=== PATIENT | female | born 1955 | race Caucasian/White ===

== ENCOUNTER 2018-04-19 18:14 | Inpatient (IN) ==
[2018-04-19] MEDS ORDERED: 0.9 % SODIUM CHLORIDE 1,000 ML IV ONE (18:55)
--- NOTE | 2018-04-19 19:18 | Emergency Department Note ---
Recheck HPI - General Chief Complaint: Recheck/Abnormal Lab/Rx Stated Complaint: low sodium Time Seen by Provider: 04/19/18 18:40 Source: patient Mode of arrival: ambulatory Limitations: no limitations - History of Present Illness HPI Narrative: 62-year-old female comes in for nausea and vomiting over the last week with profound hyponatremia found in her doctor's office. 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 Argueta up in [place] for surgical oncology as well as Dr. Fabrice reid here for oncology. She is on Zofran and Reglan and Compazine at home but has needed a scopolamine patch because of the severe nausea. She did pass out 3 nights ago and was found to be orthostatic at home. Today she notes new onset gross hematuria went to [facility] and saw Nevaeh Oscar nurse practitioner there who gave her a liter of fluid and check laboratory from her port. She is found to have sodium of 117 and so sent to the ER. She has a colostomy in place secondary to bowel obstructions from the cancer-she is not having trouble with the colostomy bag. Has not been taking her home medicines secondary to the nausea - Related Data Allergies Allergy/AdvReac Type Severity Reaction Status Date / Time chlorhexidine Allergy Verified 04/19/18 18:16 Oxycodone AdvReac Verified 04/19/18 18:16 Review of Systems All systems ED: reviewed and negative except as stated. Past Medical History - Past Medical History Attestation: Yes: The following information was validated with the patient. Medical history: Reports: cancer (Primary peritoneal), hypertension, hypothyroidism, other (Insomnia) Surgical history ED: Reports: appendectomy, , cataract, cholecystectomy , colostomy, hysterectomy, tubal ligation, other (Port ,right ear) - Social History smoking status: Never smoker Physical Exam No acute distress resting comfortably able to answer my questions appropriate. 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 Conjunctive are clear sclerae nonicteric. No nasal discharge or congestion. Oropharynx pink moist. Neck is supple without lymphadenopathy thyromegaly or carotid. Heart is regular rate and rhythm no murmur appreciated. Lungs are clear to auscultation bilaterally without wheezes rales rhonchi or respiratory distress. Abdomen soft nontender nondistended. Midline scar noted. Colostomy is noted on the right-hand side lower quadrant. It does appear to be in good position without leakage however malodorous. No pedal edema. +2 radial pulse. Alert oriented. Limitations: no limitations Course Vital Signs Temperature 97.2 F 04/19/18 18:17 Pulse Rate 112 H 04/19/18 18:17 Respiratory Rate 18 04/19/18 18:17 Blood Pressure 141/84 04/19/18 18:17 Pulse Oximetry (%) 96 04/19/18 18:17 Temperature 97.2 F 04/19/18 18:17 Pulse Rate 112 H 04/19/18 18:17 Respiratory Rate 18 04/19/18 18:17 Blood Pressure 141/84 04/19/18 18:17 Pulse Oximetry (%) 96 04/19/18 18:17 Recheck/Abnormal Lab/Rx - Lab Data Lab results reviewed: Yes I reviewed the patient's lab results. Result diagrams: 04/19/18 19:15 04/19/18 19:15 Lab Results 04/19/18 04/19/18 Range/Units 19:15 19:15 WBC 8.9 (4.5-11.0) K/mcL RBC 3.72 L (4.00-5.20) M/mcL Hgb 11.3 L (12.0-15.0) g/dL Hct 32.5 L (36.0-48.0) % POC Hct 32.0 L (36.0-48.0) % MCV 87.3 (80.0-100.0) fL MCH 30.4 (26.0-34.0) pg MCHC 34.8 (31.0-36.0) g/dL RDW 17.6 H (11.5-14.5) % Plt Count 461 H (140-440) K/mcL MPV 7.1 L (7.4-10.4) fL Gran % 51.5 (38.0-78.0) % Lymph % (Auto) 34.6 (15.5-49.0) % [place] % (Auto) 13.4 H (1.0-12.0) % Eos % (Auto) 0.3 (0.0-7.0) % Baso % (Auto) 0.2 (0.0-2.0) % Gran # 4.6 (1.8-8.0) K/mcL Lymph # (Auto) 3.1 (1.5-4.8) K/mcL [place] # (Auto) 1.2 H (0.1-0.9) K/mcL Eos # (Auto) 0 (0.0-0.7) K/mcL Baso # (Auto) 0 (0.0-0.3) K/mcL POC Sodium 126 L (133-145) mmol/L Sodium 124 L (133-145) mmol/L POC Potassium 3.3 (3.3-5.1) mmol/L Potassium 3.2 L (3.3-5.1) mmol/L POC Chloride 88 L (96-108) mmol/L Chloride 85 L (96-108) mmol/L Carbon Dioxide 23 (22-30) mmol/L POC Total CO2 22 (22-30) mmol/L Anion Gap 16.0 (8-16) POC BUN 16 (8-23) mg/dl BUN 15 (8-23) mg/dl Creatinine 0.7 (0.6-1.1) mg/dl POC Creatinine 0.6 (0.6-1.1) mg/dl GFR Calculation 94 Glucose 97 (70-105) mg/dL POC Glucose 100 (70-105) mg/dL Calcium 9.3 (8.6-10.4) mg/dl POC WB Ioniz Calcium 1.16 (1.16-1.32) mmol/L Magnesium 1.7 (1.6-2.5) mg/dL Total Bilirubin 0.4 (0.0-1.0) mg/dL AST 9 (0-37) U/l ALT 17 (0-40) U/l Alkaline Phosphatase 90 (39-117) U/L Total Protein 7.1 (5.9-8.4) gm/dL Albumin 3.9 (3.2-5.2) gm/dL Globulin 3.2 (2.2-3.7) gm/dL Albumin/Globulin Ratio 1.2 (1.0-2.3) Lipase 39 (7-60) U/L Disposition Pt seen by [employer]/PA only: No Clinical Impression: Hyponatremia, Hypokalemia, Chemotherapy induced nausea and vomiting Intractable nausea and vomiting Qualifiers: Vomiting type: unspecified Qualified Code(s): R11.2 - Nausea with vomiting, unspecified Summary: After exam and interview, workup ordered with laboratory. Fluids ordered at modest rate of 125 mL/h Laboratory shows increased sodium 124 now-this is rising all to fast so we will hydrate gently. Mild hypokalemia also noted Discussed case with Dr. Wells, our hospitalist, who agreed to accept the patient for further monitored electrolyte correction as well as treatment of her nausea and vomiting Urinalysis is pending Disposition: Xfer As Inpt ([facility]) Condition: Fair Referrals: Sarina Oscar ARNP [Primary Care Provider] -
[2018-04-19] MEDS ORDERED: ONDANSETRON 4 MG/2 ML VIAL IV ONE (19:49)
[2018-04-19 20:09] LABS: Basophils # (Auto) 0 K/mcL (0.0-0.3); Basophils % (Auto) 0.2 % (0.0-2.0); Eosinophils # (Auto) 0 K/mcL (0.0-0.7); Eosinophils % (Auto) 0.3 % (0.0-7.0); Granulocytes % (Auto) 51.5 % (38.0-78.0); Lymphocytes # (Auto) 3.1 K/mcL (1.5-4.8); Lymphocytes % (Auto) 34.6 % (15.5-49.0); Mean Cell Volume 87.3 fL (80.0-100.0); Mean Corpuscular HGB Conc 34.8 g/dL (31.0-36.0); Mean Corpuscular Hemoglobin 30.4 pg (26.0-34.0); Monocytes # (Auto) 1.2 K/mcL (0.1-0.9); Monocytes % (Auto) 13.4 % (1.0-12.0); Platelet Count 461 K/mcL (140-440); RBC 3.72 M/mcL (4.00-5.20); Red Cell Distribution Width 17.6 % (11.5-14.5)
[2018-04-19 20:31] LABS: ALT/SGPT 17 U/l (0-40); Albumin 3.9 gm/dL (3.2-5.2); Albumin/Globulin Ratio 1.2 (1.0-2.3); Alkaline Phosphatase 90 U/L (39-117); Blood Urea Nitrogen 15 mg/dl (8-23); Lipase 39 U/L (7-60)
[2018-04-19] MEDS ORDERED: ACETAMINOPHEN 325 MG TABLET PO PRN (22:38)
[2018-04-19] MEDS ORDERED: SCOPOLAMINE 1 PATCH PATCH TD PRN (22:38)
[2018-04-19] MEDS ORDERED: CYCLOBENZAPRINE 10 MG TABLET PO PRN (22:38)
[2018-04-19] MEDS ORDERED: cefTRIAXone 1 GM in DEXTROSE 5% IN WATER 50 ML IV SCH (22:38)
[2018-04-19] MEDS ORDERED: GABAPENTIN 100 MG CAPSULE PO PRN (22:38)
[2018-04-19] MEDS ORDERED: traMADol 50 MG TABLET PO PRN (22:38)
[2018-04-19] MEDS ORDERED: ONDANSETRON 4 MG/2 ML VIAL IV PRN (22:38)
[2018-04-19] MEDS ORDERED: PROCHLORPERAZINE MALEATE 10 MG TABLET PO PRN (22:38)
[2018-04-19 22:47] LABS: Appearance,Urine HAZY; Bacteria,Urine MOD /hpf (0); Bilirubin,Urine NEG (NEG); Color,Urine AMBER; Glucose,Urine (UA) NEGATIVE (NEG); Leukocyte Esterase,Urine 250 /uL (NEG); Mucus,Urine FEW /hpf (0); Protein,Urine 30 mg/dL (NEG); Specific Gravity,Urine 1.021 (1.000-1.035); Urine Blood NEG mg/dL (<0.03); Urine Hyaline Cast 3 /lpf (0-2); Urine RBC 6 /hpf (0-1); Urine Squamous Epithelial Cell 2 /hpf (0-4); Urine Transitional Epi Cells 1 /hpf (0-2); Urine WBC > 182 /hpf (0-4)
--- NOTE | 2018-04-19 22:55 | Internal Med History&Physical ---
Medical - H&P: HPI Patient information: Note initiated : 04/19/18 at 10:49 pm Service Date, if different from initiated Date: [] Patient: Nuvia Schafer a 62 y/o F admitted on 04/19/18 for low sodium. Chief Complaint: Nausea, vomiting, hyponatremia on outside labs History of present illness: Ms. Schafer is a 62 year old F with a history of primary peritoneal cancer, status post chemotherapy, status post debulking surgery on 03/19/18, which time there was an ileal resection due to tumor involvement, with what sounds like a jejuno- colo-anastomosis with colostomy. Patient was discharged from the hospital on 07/05. Patient had labs drawn 2 weeks ago, which time her sodium was 124. This was for follow-up that occurred on 04/09 with her oncologist. One week ago, last , the patient started to develop nausea and vomiting. This continued through the weekend. She was using Reglan, Zofran, Compazine and/or to try to control the nausea. She's had bouts of intermittent nausea following her surgery. On Monday she had a scopolamine patch to her regimen. She is continuing to be nauseated and vomiting. On Monday evening she had a syncopal episode in the bathroom, was orthostatic the next morning on home blood pressure checks with her systolic falling from 98 to the 70s. She was able to push fluids, including water, milk, oliver grady, cranberry juice. Subsequently the orthostasis resolved and she was no longer having dizziness. However from Monday until today (4 days) she has lost 5 pounds. Overnight last night the patient had some hematuria, had dysuria, was concern for urinary tract infection. She was seen by her PCP today, had labs drawn showing a serum sodium of 117. She received a liter bolus of fluids in the office, is referred to the ED for further evaluation. The emergency department, the patient's received some further IV fluids, follow- up serum sodium on arrival is 124. She is being admitted for further treatment of subacute hyponatremia. As noted, the patient was pushing fluids, including water, oliver grady, cranberry juice and some milk. She tried Pedialyte, but could not tolerate the taste. In addition she's had continuing ostomy output. Due to decreased oral intake, she has not had high ostomy output however. Benign able to keep down any of her medications. She's had no blood in ostomy output, no hematemesis. She has hematuria and dysuria as noted, he sees some Pyridium and her PCPs office as well as a prescription for Keflex today. She's had a dry cough, wondering if it's related to her lisinopril. No fever, chills, headache, vision changes, chest pain, dyspnea. No current lightheadedness. All systems: reviewed and no additional remarkable complaints except as stated Medical - H&P: PMH Medical history: Primary peritoneal cancer Hypertension Hypothyroidism Depression Cervical radiculopathy Urinary tract infection Surgical history: Exploratory laparotomy with tumor debulking, he'll ileal resection and ostomy creation Prior hysterectomy History of appendectomy History of cholecystectomy History of History of tubal ligation Pertinent family history: History of colon cancer, CHF and coronary disease in the family. Social history: Patient is a nurse, works at [employer]. She is preparing to retire because of her recent diagnosis. She does not smoke. She does not drink alcohol. Medical - H&P: Meds Home Medications Medication Instructions Recorded Confirmed Type Acetaminophen [Tylenol] 1,000 mg PO Q4HP PRN 04/19/18 04/19/18 History Aspirin [Kristi Chewable Aspirin] 2 tab PO DAILY 04/19/18 04/19/18 History Atorvastatin [Lipitor] 20 mg PO HS 04/19/18 04/19/18 History Cephalexin [Keflex] 1,000 mg PO BID 04/19/18 04/19/18 History Cyclobenzaprine [Flexeril] 10 mg PO TIDP PRN 04/19/18 04/19/18 History Fluticasone Propionate [Flonase] 2 spray NS DAILY 04/19/18 04/19/18 History Gabapentin [Neurontin] 100 - 300 mg PO TID PRN 04/19/18 04/19/18 History Letrozole [Femara] 2.5 mg PO QHS 04/19/18 04/19/18 History Levothyroxine [Synthroid] 88 mcg PO HS 04/19/18 04/19/18 History Lisinopril [Zestril] 20 mg PO BID 04/19/18 04/19/18 History Loratadine [Loradamed] 10 mg PO DAILY 04/19/18 04/19/18 History Potassium Chloride 2 cap PO BID 04/19/18 04/19/18 History Prochlorperazine Maleate 10 mg PO Q8HP PRN 04/19/18 04/19/18 History [Compazine] Promethazine [Phenergan] 25 mg PO Q6HP PRN 04/19/18 04/19/18 History Ranitidine HCl [Heartburn Relief] 150 mg PO QHS 04/19/18 04/19/18 History Scopolamine [Transderm-Scop] 1 each TD Q72HP PRN 04/19/18 04/19/18 History Sertraline [Zoloft] 50 mg PO HS 04/19/18 04/19/18 History Spironolactone [Aldactone] 25 mg PO DAILYP PRN 04/19/18 04/19/18 History Temazepam [Restoril] 7.5 mg PO QHS 04/19/18 04/19/18 History traMADol HCL [Ultram] 50 mg PO Q4HP PRN 04/19/18 04/19/18 History traZODone HCL [Trazodone HCl] 50 - 100 mg PO QHS PRN 04/19/18 04/19/18 History Allergies Allergy/AdvReac Type Severity Reaction Status Date / Time chlorhexidine Allergy Verified 04/19/18 18:16 Oxycodone AdvReac Verified 04/19/18 18:16 Medical - H&P: Exam - Constitutional Vitals: Temp Pulse Resp BP Pulse Ox 97.2 F 89 16 122/54 97 04/19/18 22:24 04/19/18 22:24 04/19/18 22:24 04/19/18 22:24 04/19/18 22:24 Exam: GENERAL: Alert, oriented, in no acute distress. Cooperative, appears stated age. HEENT: Atraumatic. PERRL, conjunctiva clear, no scleral icterus. Hearing grossly intact. Oropharynx with tacky mucous membranes, no lip or gum lesions, no pharyngeal erythema or exudate. Tongue midline, palate rises symmetrically. NECK: Supple without meningismus, no thyromegaly RESPIRATORY: Breath sounds clear bilaterally without wheezes or rhonchi. Respiratory effort is unlabored. CARDIOVASCULAR: Regular rate and rhythm, no murmur gallop or rub. No peripheral edema. Carotid pulses 2+ without bruit. Pedal pulses 2+. GI: Abdomen soft, nontender, no guarding or rebound. Left lower quadrant ostomy , ostomy is intact, stool in the appliance. Well-healed surgical scars. Bowel sounds are present. No hepatosplenomegaly appreciated. LYMPHATIC: No cervical or supraclavicular lymphadenopathy MUSCULOSKELETAL: No joint erythema or swelling, normal range of motion in extremities. Muscle mass normal. Strength 5/5 in the upper and lower extremities. SKIN: Intact, warm, dry. Skin turgor decreased. NEUROLOGIC: Cranial nerves II through XII grossly intact. Sensation intact to light touch bilaterally. PSYCHIATRIC: Alert, oriented x3, normal affect, good insight. Medical - H&P: Reslt - Labs CBC & Chem 7: 04/19/18 19:15 04/19/18 19:15 Labs: Short CBC 04/19/18 Range/Units 19:15 WBC 8.9 (4.5-11.0) K/mcL Hgb 11.3 L (12.0-15.0) g/dL Hct 32.5 L (36.0-48.0) % Plt Count 461 H (140-440) K/mcL BMP 04/19/18 19:15 Sodium 124 L Potassium 3.2 L Chloride 85 L Carbon Dioxide 23 BUN 15 Creatinine 0.7 Glucose 97 Calcium 9.3 Liver Function 04/19/18 Range/Units 19:15 Total Bilirubin 0.4 (0.0-1.0) mg/dL AST 9 (0-37) U/l ALT 17 (0-40) U/l Alkaline Phosphatase 90 (39-117) U/L Albumin 3.9 (3.2-5.2) gm/dL Urine 04/19/18 Range/Units 21:00 Urine Color Felipa Urine Appearance Hazy Urine pH 6.0 (5.0-9.0) Ur Specific [place] 1.021 (1.000-1.035) Urine Protein 30 A (NEG) mg/dL Urine Glucose (UA) Negative (NEG) mg/dL Medical - H&P: A/P (1) Hyponatremia Current visit: Yes Status: Acute (2) Hypokalemia Current visit: Yes Status: Acute (3) Intractable nausea and vomiting Current visit: Yes Status: Acute (4) Acute cystitis with hematuria Current visit: Yes Status: Acute - Narrative A/P Narrative: 62-year-old female with primary peritoneal cancer, presenting with nausea, vomiting and found to have critical hyponatremia. Hyponatremia. Serum sodium and her primary care office was 117. She received bolus of fluids at the office. She also had some broth which she felt was consulted. Upon presentation her sodium is now 124. She still has some nausea. Etiology of the hyponatremia is unclear. It may be due to chronic volume depletion from ostomy output and decreased oral intake (hypovolemic hyponatremia). At subacute in nature, her sodium was 124 2 weeks ago. The further drop may have triggered her nausea and vomiting. Alternatively she may have had further drop in her sodium due to nausea and vomiting and decreased oral intake with free water replacement. We'll need to rule out hypothyroidism , as she is currently on thyroid replacement, will also evaluate for adrenal insufficiency given extensive abdominal tumor burden. At this point, the patient's sodium is corrected 7 mEq. We will refrain from further acute correction, with a goal of 6-8 mEq per day to avoid cerebral edema. Plan: 1. Telemetry admission 2. Check basic now, consider further fluids overnight if sodium dropping, otherwise recheck in morning and continue hydration if needed 3. Check a.m. cortisol 4. Check TSH Nausea and vomiting. As noted above, may be symptomatic hyponatremia, however could also be related to her intra-abdominal tumor burden and ileus or partial obstruction (though she maintains good ostomy output, thus obstruction less likely). Plan: Monitor symptoms with correction of sodium, anti-emetics when necessary Hypokalemia. Likely secondary to GI losses. Plan: Replete Urinary tract infection: Acute cystitis with hematuria. She is prescribed Keflex, has not yet had chance to take any. Plan: Begin ceftriaxone while hospitalized, follow-up culture CODE STATUS: Full code
[2018-04-19] MEDS ORDERED: cefTRIAXone 1 GM VIAL ONE (23:07)
[2018-04-19] MEDS: 0.9 % SODIUM CHLORIDE 10 ML SYRINGE IV SCH (23:31)
[2018-04-19 23:56] LABS: Blood Urea Nitrogen 16 mg/dl (8-23)
[2018-04-20 00:06] LABS: Cortisol,AM 14.5 ug/dl (6.2-19.4)
[2018-04-20 07:56] LABS: Blood Urea Nitrogen 15 mg/dl (8-23)
[2018-04-20] MEDS ORDERED: POTASSIUM CHLORIDE 10 MEQ TABLET PO SCH (08:00)
[2018-04-20] MEDS: ENOXAPARIN 40 MG/0.4 ML SYRINGE SQ SCH (09:20)
[2018-04-20] MEDS: POTASSIUM CHLORIDE 20 MEQ PACKET PO SCH ×2 (09:21→16:50)
[2018-04-20] MEDS: LORATADINE 10 MG TABLET PO SCH (09:21)
[2018-04-20] MEDS: 0.9 % SODIUM CHLORIDE 10 ML SYRINGE IV SCH ×3 (09:21→22:00)
[2018-04-20] MEDS: ASPIRIN 81 MG TAB.CHEW PO SCH (09:21)
[2018-04-20] MEDS: cefTRIAXone 1 GM VIAL IV SCH (09:22)
[2018-04-20] MEDS ORDERED: 0.9 % SODIUM CHLORIDE 1,000 ML IV SCH (10:00)
[2018-04-20] MEDS ORDERED: POTASSIUM CHLORIDE 40 MEQ in DEXTROSE 5% IN WATER 500 ML IV ONE (12:42)
[2018-04-20 16:11] LABS: Blood Urea Nitrogen 11 mg/dl (8-23)
--- NOTE | 2018-04-20 19:05 | Internal Med Progress Note ---
Medical - PN: Subj Patient information: Note initiated : 04/20/18 at 7:03 pm Service Date, if different from initiated Date: [] Patient: Nuvia Schafer 62 y/o F admitted on 04/19/18 for Low Sodium. Chief Complaint: f/u hyponatremia, UTI Interval history: 04/19 Patient had labs drawn 2 weeks ago, which time her sodium was 124. This was for follow-up that occurred on 04/09 with her oncologist. One week ago, last , the patient started to develop nausea and vomiting. This continued through the weekend. She was using Reglan, Zofran, Compazine and/or to try to control the nausea. She's had bouts of intermittent nausea following her surgery. On Monday she had a scopolamine patch to her regimen. She is continuing to be nauseated and vomiting. On Monday evening she had a syncopal episode in the bathroom, was orthostatic the next morning on home blood pressure checks with her systolic falling from 98 to the 70s. She was able to push fluids, including water, milk, oliver grady, cranberry juice. Subsequently the orthostasis resolved and she was no longer having dizziness. However from Monday until today (4 days) she has lost 5 pounds. Overnight last night the patient had some hematuria, had dysuria, was concern for urinary tract infection. She was seen by her PCP today, had labs drawn showing a serum sodium of 117. She received a liter bolus of fluids in the office, is referred to the ED for further evaluation. 04/20 Nausea is improved, generally tolerating clear liquids. Serum sodium stable overnight, had not received any further fluids, however did not drop. Has now been resumed on saline infusion to slowly correct her sodium. No fever, no chills, dysuria improved. Nausea improved. No abdominal pain. - Constitutional Vitals: Vital Signs Temp Pulse Resp BP Pulse Ox 97.3 F 91 H 18 137/65 98 04/20/18 15:00 04/19/18 22:38 04/20/18 15:00 04/20/18 15:00 04/20/18 15:00 Period Temp Pulse Resp BP Sys/Marino Pulse Ox Last 24 Hr 96.7 F-98.6 F 87-98 14-23 106-158/43-93 97-99 Intake and Output 04/20/18 04/20/18 04/20/18 05:59 13:59 21:59 Intake Total 120 / 120 1130 / 1130 360 / 360 Output Total 575 / 575 625 / 625 Balance -455 / -455 1130 / 1130 -265 / -265 Weight 164 lb 164 lb Patient Weight 04/21/18 05:59 Weight 164 lb Intake & Output: Intake & Output 04/20/18 04/20/18 04/20/18 05:59 13:59 21:59 Intake Total 120 / 120 1130 / 1130 360 / 360 Output Total 575 / 575 625 / 625 Balance -455 / -455 1130 / 1130 -265 / -265 Weight 164 lb 164 lb Intake: Oral 1130 / 1130 360 / 360 GI Tube Flush 120 / 120 Output: Gastric Drainage 275 / 275 50 / 50 Jejunostomy 275 / 275 50 / 50 Void Amount 300 / 300 575 / 575 Other: Meal Lunch Percent of Meal Consumed 75% Feeding Ability Independent Exam: General: In bed, no acute distress Chest: Clear, no rales, nonlabored Cardiovascular: Regular, no edema Abdomen: Soft, active bowel sounds Neuro: Alert, oriented 3, moves all extremities equally Medical - PN: Obj Da - Labs CBC & Chem 7: 04/19/18 19:15 04/20/18 14:01 Labs: Abnormal Lab Results 04/20/18 04/20/18 04/19/18 14:01 04:34 22:52 RBC Hgb Hct POC Hct RDW Plt Count MPV [place] % (Auto) [place] # (Auto) POC Sodium Sodium 127 L 125 L 123 L Potassium POC Chloride Chloride 91 L 86 L 86 L Carbon Dioxide 21 L Anion Gap 18.0 H Urine Protein Urine Nitrate Urine Urobilinogen Ur Leukocyte Esterase Urine RBC Urine WBC Urine Bacteria Hyaline Casts 04/19/18 04/19/18 04/19/18 21:00 19:15 19:15 RBC 3.72 L Hgb 11.3 L Hct 32.5 L POC Hct 32.0 L RDW 17.6 H Plt Count 461 H MPV 7.1 L [place] % (Auto) 13.4 H [place] # (Auto) 1.2 H POC Sodium 126 L Sodium 124 L Potassium 3.2 L POC Chloride 88 L Chloride 85 L Carbon Dioxide Anion Gap Urine Protein 30 A Urine Nitrate Pos A Urine Urobilinogen 4.0 A Ur Leukocyte Esterase 250 A Urine RBC 6 H Urine WBC > 182 H Urine Bacteria Mod A Hyaline Casts 3 H Microbiology 04/19/18 21:45 Urine Culture - Preliminary Urine - Clean Void Mid-Stream Gram negative bacillus Meds: Medications Acetaminophen (Tylenol) 650 mg PO Q6HP PRN PRN Reason: PAIN/FEVER > 101 Aspirin (Aspirin) 162 mg PO DAILY [facility] Last Admin: 04/20/18 09:21 Dose: 162 mg Atorvastatin Calcium (Lipitor) 20 mg PO HS [facility] Ceftriaxone Sodium (Rocephin) 1 gm IV Q24H [facility] Last Admin: 04/20/18 09:22 Dose: 1 gm Cyclobenzaprine HCl (Flexeril) 10 mg PO TIDP PRN PRN Reason: Pain Enoxaparin Sodium (Lovenox) 40 mg SQ DAILY [facility] Last Admin: 04/20/18 09:20 Dose: 40 mg Famotidine (Pepcid) 20 mg PO HS [facility] Gabapentin (Neurontin) 100 mg PO TID PRN PRN Reason: Pain Heparin Sodium (Porcine) (Heparin Flush) 5 ml IV Q12 [facility] Last Admin: 04/20/18 09:20 Dose: 5 ml Sodium Chloride (Sodium Chloride 0.9%) 1,000 mls @ 75 mls/hr IV .[id number] [facility] Last Admin: 04/20/18 10:35 Dose: 75 mls/hr Levothyroxine Sodium (Synthroid) 88 mcg PO HS [facility] Loratadine (Claritin) 10 mg PO DAILY [facility] Last Admin: 04/20/18 09:21 Dose: 10 mg Ondansetron HCl (Zofran) 4 mg IV Q4HP PRN PRN Reason: Nausea And Vomiting Last Admin: 04/20/18 10:34 Dose: 4 mg Letrozole [Femara] 2 (.5 Mg Tab) 1 dose PO [facility] Potassium Chloride (Klor-Con) 20 meq PO BIDCC [facility] Last Admin: 04/20/18 16:50 Dose: Not Given Prochlorperazine Maleate (Compazine) 10 mg PO Q8HP PRN PRN Reason: Nausea Scopolamine (Transderm-Scop) 1 patch TD Q72HP PRN PRN Reason: Nausea Sertraline HCl (Zoloft) 50 mg PO HS [facility] Sodium Chloride (Saline Flush) 10 ml IV Q8 [facility] Last Admin: 04/20/18 16:09 Dose: Not Given Temazepam (Restoril) 15 mg PO HS [facility] Tramadol HCl (Ultram) 50 mg PO Q4HP PRN PRN Reason: Pain Medical - PN: A/P (1) Hyponatremia Status: Acute Current Visit: Yes (2) Hypokalemia Status: Acute Current Visit: Yes (3) Intractable nausea and vomiting Status: Acute Current Visit: Yes (4) Acute cystitis with hematuria Status: Acute Current Visit: Yes - Narrative A/P Narrative: 62-year-old female with primary peritoneal cancer, presenting with nausea, vomiting and found to have critical hyponatremia. Hyponatremia. Serum sodium stable overnight, 125 this morning. Resuming slow saline infusion 75 mL/hour to correct further 6-8 mEq overnight. Nausea is improved, suspect component of her nausea is related to symptomatic hyponatremia. Plan: Every 4 hour basic metabolic panels, continue saline at 75 mL/hour, adjust as needed. Nausea and vomiting. As noted above, may be symptomatic hyponatremia; cannot rule out it being related to her intra-abdominal tumor burden and ileus or partial obstruction (though she maintains good ostomy output, thus obstruction less likely). Plan: Monitor symptoms, anti-emetics when necessary Hypokalemia. Likely secondary to GI losses. Plan: Replete prn. Urinary tract infection: Acute cystitis with hematuria. Gram-negative bacillus on urine culture. Plan: Continue ceftriaxone, narrow spectrum once sensitivities known. Medical - PN: Qual - VTE Deep Vein Thrombosis/Pulmonary Embolism Present on Admission: No
[2018-04-20] MEDS ORDERED: POTASSIUM CHLORIDE IV SCH (20:30)
[2018-04-20] MEDS ORDERED: NACL 0.9% IV SCH (20:30)
[2018-04-20] MEDS ORDERED: KCL 20 MEQ IV SCH (20:30)
[2018-04-20] MEDS ORDERED: LEVOTHYROXINE 88 MCG TABLET PO SCH (21:00)
[2018-04-20] MEDS ORDERED: SERTRALINE 50 MG TABLET PO SCH (21:00)
[2018-04-20] MEDS ORDERED: RANITIDINE HCL 150 MG PO SCH (21:00)
[2018-04-20] MEDS ORDERED: LETROZOLE 2.5 MG PO SCH (21:00)
[2018-04-20] MEDS ORDERED: ATORVASTATIN 20 MG TABLET PO SCH (21:00)
[2018-04-20] MEDS ORDERED: FAMOTIDINE 20 MG TABLET PO SCH (21:00)
[2018-04-20] MEDS ORDERED: TEMAZEPAM 15 MG CAPSULE PO SCH (21:00)
[2018-04-20] MEDS ORDERED: POTASSIUM CHLORIDE 20 MEQ/10 ML VIAL IV ONE (21:01)
[2018-04-20 23:47] LABS: Blood Urea Nitrogen 9 mg/dl (8-23)
[2018-04-21 01:10] LABS: Blood Urea Nitrogen 7 mg/dl (8-23)
[2018-04-21] MEDS: 0.9 % SODIUM CHLORIDE 10 ML SYRINGE IV SCH ×2 (05:56→16:14)
[2018-04-21 07:17] LABS: Blood Urea Nitrogen 5 mg/dl (8-23)
[2018-04-21] MEDS: POTASSIUM CHLORIDE 20 MEQ PACKET PO SCH (08:39)
[2018-04-21] MEDS: cefTRIAXone 1 GM VIAL IV SCH (08:40)
[2018-04-21] MEDS: LORATADINE 10 MG TABLET PO SCH (08:41)
[2018-04-21] MEDS: ASPIRIN 81 MG TAB.CHEW PO SCH (08:41)
[2018-04-21] MEDS: ENOXAPARIN 40 MG/0.4 ML SYRINGE SQ SCH (08:42)
[2018-04-21 15:30] LABS: Blood Urea Nitrogen 5 mg/dl (8-23)
--- NOTE | 2018-04-21 15:36 | Discharge Summary ---
Medical - DS: Prov Patient information: Note initiated : 04/21/18 at 3:34 pm Patient: Nuvia Schafer 62 y/o F admitted on 04/19/18 for Low Sodium. Date of admission: 04/19/18 22:27 Discharge date: 04/21/18 Primary care physician: Sarina Oscar Admitting clinician: Riddhi Garay Consults: 04/19/18 20:17 Consult to Physician [CONS] Stat Comment: Consulting Provider: Riddhi Garay Reason For Exam: Physician to Consult Discharging clinician: Riddhi Garay Medical - DS: Meds - Discharge Medications Active and Home Medications: Home Medications Acetaminophen [Tylenol] 1,000 mg PO Q4HP PRN 04/19/18 [History Confirmed Last Taken Unknown] Aspirin [Kristi Chewable Aspirin] 2 tab PO DAILY 04/19/18 [History Confirmed 11/05 Last Taken 04/16/18] Atorvastatin [Lipitor] 20 mg PO HS 04/19/18 [History Confirmed 04/19/18 Last Taken 04/05/18] Cephalexin [Keflex] 1,000 mg PO BID 04/19/18 [History Confirmed 04/19/18 Last Taken Unknown] Cyclobenzaprine [Flexeril] 10 mg PO TIDP PRN 04/19/18 [History Confirmed Last Taken Unknown] Fluticasone Propionate [Flonase] 2 spray NS DAILY 04/19/18 [History Confirmed Last Taken Unknown] Gabapentin [Neurontin] 100 - 300 mg PO TID PRN 04/19/18 [History Confirmed 04/19 Last Taken Unknown] Letrozole [Femara] 2.5 mg PO QHS 04/19/18 [History Confirmed 04/19/18 Last Taken 04/16/18] Levothyroxine [Synthroid] 88 mcg PO HS 04/19/18 [History Confirmed 04/19/18 Last Taken 04/16/18] Lisinopril [Zestril] 20 mg PO BID 04/19/18 [History Confirmed 04/19/18 Last Taken 04/16/18] Loratadine [Loradamed] 10 mg PO DAILY 04/19/18 [History Confirmed 04/19/18 Last Taken 04/16/18] Potassium Chloride 2 cap PO BID 04/19/18 [History Confirmed 04/19/18 Last Taken 04/12/18] Prochlorperazine Maleate [Compazine] 10 mg PO Q8HP PRN 04/19/18 [History Confirmed 04/19/18 Last Taken Unknown] Promethazine [Phenergan] 25 mg PO Q6HP PRN 04/19/18 [History Confirmed 04/19/18 Last Taken Unknown] Ranitidine HCl [Heartburn Relief] 150 mg PO QHS 04/19/18 [History Confirmed 11/05 Last Taken 04/19/18] Scopolamine [Transderm-Scop] 1 each TD Q72HP PRN 04/19/18 [History Confirmed 11/05 Last Taken 04/19/18] Sertraline [Zoloft] 50 mg PO HS 04/19/18 [History Confirmed 04/19/18 Last Taken 04/16/18] Spironolactone [Aldactone] 25 mg PO DAILYP PRN 04/19/18 [History Confirmed 04/19 Last Taken Unknown] Temazepam [Restoril] 7.5 mg PO QHS 04/19/18 [History Confirmed 04/19/18 Last Taken 04/18/18] traMADol HCL [Ultram] 50 mg PO Q4HP PRN 04/19/18 [History Confirmed 04/19/18 Last Taken Unknown] traZODone HCL [Trazodone HCl] 50 - 100 mg PO QHS PRN 04/19/18 [History Confirmed 04/19/18 Last Taken 04/18/18] Medical - DS: Hosp Hospital course: 04/19 Patient had labs drawn 2 weeks ago, which time her sodium was 124. This was for follow-up that occurred on 04/09 with her oncologist. One week ago, last , the patient started to develop nausea and vomiting. This continued through the weekend. She was using Reglan, Zofran, Compazine and/or to try to control the nausea. She's had bouts of intermittent nausea following her surgery. On Monday she had a scopolamine patch to her regimen. She is continuing to be nauseated and vomiting. On Monday evening she had a syncopal episode in the bathroom, was orthostatic the next morning on home blood pressure checks with her systolic falling from 98 to the 70s. She was able to push fluids, including water, milk, oliver grady, cranberry juice. Subsequently the orthostasis resolved and she was no longer having dizziness. However from Monday until today (4 days) she has lost 5 pounds. Overnight last night the patient had some hematuria, had dysuria, was concern for urinary tract infection. She was seen by her PCP today, had labs drawn showing a serum sodium of 117. She received a liter bolus of fluids in the office, is referred to the ED for further evaluation. 04/20 Nausea is improved, generally tolerating clear liquids. Serum sodium stable overnight, had not received any further fluids, however did not drop. Has now been resumed on saline infusion to slowly correct her sodium. No fever, no chills, dysuria improved. Nausea improved. No abdominal pain. 04/21 Feels better this morning, tolerated full breakfast without any nausea. Appetite is good. No lightheadedness. No nausea. Was on saline overnight, sodium corrected to 133. Saline stopped, recheck 3 hours later, sodium 134 and stable. Overall, suspect this was hypovolemic hyponatremia, with a possible dilutional component from use of free water, juices and oliver grady to help hydrate when she was feeling orthostatic prior to admission. TSH was normal on her replacement. Cortisol was normal. Blood pressure medicines were held at admission, she has had normal blood pressure readings during hospitalization and these will be held at discharge. She had been diagnosed with urinary tract infection just prior to admission, she finished a 3 day course of ceftriaxone for an uncomplicated pansensitive Escherichia coli acute cystitis. Discharge diagnosis: Hypovolemic hyponatremia Secondary discharge diagnosis: Acute cystitis, pansensitive Escherichia coli, status post treatment Hypokalemia, repleted Intractable nausea and vomiting, suspected secondary to hyponatremia, resolved with correction of serum sodium Primary peritoneal tumor - Time Spent with Patient Total time spent providing and/or coordinating discharge services: Greater than 30 minutes Medical - DS: Exam - Constitutional Vitals: Vital Signs Temp Pulse Resp BP Pulse Ox 04/21/18 11:46 97.3 F 18 104/57 99 04/21/18 07:06 97.1 F 18 120/62 98 04/21/18 04:00 97.7 F 75 20 121/56 98 04/21/18 00:00 97.1 F 74 20 112/67 98 04/20/18 20:00 82 97 04/20/18 19:43 98.0 F 85 18 120/68 98 Intake and Output 04/21/18 04/21/18 04/21/18 05:59 13:59 21:59 Intake Total 360 / 360 1100 / 1100 Output Total 950 / 950 950 / 950 Balance -590 / -590 150 / 150 Intake: Oral 360 / 360 1100 / 1100 Output: Void Amount 800 / 800 850 / 850 Stool 150 / 150 100 / 100 Other: Meal Lunch Percent of Meal Consumed 50% Feeding Ability Independent Stool Consistency Normal for Patient # Voids 2 General appearance: no acute distress - Head Head exam: Present: normocephalic - ENT ENT exam: Present: mucous membranes moist - Respiratory Respiratory exam: Present: normal respiratory exam. Absent: accessory muscle use, wheezes - Cardiovascular Cardiovascular exam: Present: normal rate and rhythm, +S1, +S2. Absent: systolic murmur - GI/Abdominal GI/Abdominal exam: Present: normal bowel sounds, soft. Absent: tenderness - Extremities Exam Extremities exam: Absent: pedal edema - Neurological Exam Neurological exam: Present: alert, CN II-XII intact, normal gait, oriented X3 Medical - DS: Data Labs on day of discharge: Labs from last 24 hours 04/21/18 04/21/18 04/20/18 13:51 04:34 22:10 Sodium 134 133 127 L Potassium 3.6 4.0 3.4 Chloride 97 98 94 L Carbon Dioxide 23 21 L 20 L Anion Gap 14.0 14.0 13.0 BUN 5 L 5 L 7 L Creatinine 0.7 0.6 0.6 GFR Calculation 94 98 98 Glucose 112 H 91 116 H Calcium 8.7 8.8 8.4 L 04/20/18 04/20/18 17:57 14:01 Sodium 127 L 127 L Potassium 3.3 3.7 Chloride 92 L 91 L Carbon Dioxide 23 22 Anion Gap 12.0 14.0 BUN 9 11 Creatinine 0.6 0.6 GFR Calculation 98 98 Glucose 149 H 99 Calcium 8.6 9.0 Medical - DS: A/P - Patient/Caregiver Discharge Instructions Activity: increase activity as tolerated Diet: Regular Diet Additional Instructions: If you feel dehydrated, use electrolyte-containing drinks, such as sports drinks or Pedialyte to help rehydrate. - Problem Maintenance (1) Hyponatremia Status: Resolved (2) Hypokalemia Status: Resolved (3) Intractable nausea and vomiting Status: Resolved Qualifiers: Vomiting type: unspecified Qualified Code(s): R11.2 - Nausea with vomiting , unspecified (4) Acute cystitis with hematuria Status: Resolved - Follow up Plan Follow up with: Sarina Oscar ARNP [Primary Care Provider] - (7-10 days) Disposition: Home, Self-Care Prognosis: Fair Rehab Potential: Fair Overall status at discharge: patient is back to baseline Medical - DS: Qual - VTE Deep Vein Thrombosis/Pulmonary Embolism Present on Admission: No
== END 2018-04-21 17:45 | disposition home or self-care (01) | DRG 641 ==
LOC: ED 18:14 → ICU 22:27
PROVIDERS: ADMIT Internal Medicine; ATTEND Internal Medicine